=== PATIENT | male | born 1990 | race Caucasian/White ===

== ENCOUNTER 2025-05-10 23:20 | Emergency (ER) | payer MEDICAID, SELFPAY ==
[2025-05-10 23:22] VITALS: BMI 26.4
[2025-05-10 23:26] VITALS: BP 158/100; PULSE 91; RESP 17; TEMP 36.8; O2SAT 97
--- NOTE | 2025-05-10 23:35 | PD.EDSKIN ---
ED Skin Abcess FB-RME/HPI General Chief complaint: Ankle/Foot Injury Stated complaint: LEFT FOOT SWELLING Time Seen by Provider: 05/10/25 23:29 Arrival date/time: 05/10/25 23:20 This is a case of 34-year-old male who came in in the emergency room due to a small lump on the left dorsal foot for 5 days due to worsening of the symptoms now with redness and swelling this patient decided to sought consult here in the emergency room patient tetanus shot is up Limitations: no limitations Related Data Previous Rx's ?Medication ?Instructions ?Recorded acetaminophen 500 mg tablet 1,000 mg (2 x 500 mg) PO QID PRN 01/20/21 (Tylenol Extra Strength) fever or pain #30 tabs albuterol sulfate 90 mcg/actuation 2 puff inhalation QID #18 grams 01/20/21 aerosol inhaler azithromycin 250 mg tablet See Rx Instructions PO .COMPLEX #6 01/20/21 tabs ibuprofen 600 mg tablet 600 mg PO QID PRN fever or pain 02/17/21 #30 tabs cephalexin 500 mg capsule 500 mg PO TID 10 days #30 caps 05/10/25 sulfamethoxazole 800 1 tab PO BID 10 days #20 tabs 05/10/25 mg-trimethoprim 160 mg tablet (Bactrim DS) Allergies Allergy/AdvReac Type Severity Reaction Status Date / Time No Known Allergies Allergy Verified 05/10/25 23:21 Review of Systems Review of Systems Systems Reviewed: All systems reviewed, normal except as documented Constitutional Constitutional: Reports system reviewed and no additional complaints, except as documented and Reports as per HPI Cardiovascular Cardiovascular: Reports system reviewed and no additional complaints, except as documented and Reports as per HPI Respiratory Respiratory: Reports system reviewed and no additional complaints, except as documented and Reports as per HPI Gastrointestinal Gastrointestinal: Reports system reviewed and no additional complaints, except as documented and Reports as per HPI Musculoskeletal Musculoskeletal: Reports system reviewed and no additional complaints, except as documented and Reports as per HPI Integumentary/Breasts Skin/Breast: Reports system reviewed and no additional complaints, except as documented, Reports as per HPI and Reports other (Abscess) Neurologic Neurologic: Reports system reviewed and no additional complaints, except as documented and Reports as per HPI Past Medical History Past Medical History CARDIAC: Negative Congestive Heart Failure RESPIRATORY: Negative Chronic Obstructive Pulmonary Disease (COPD) GENITOURINARY: Negative Renal Disease ENDOCRINE: Negative Diabetes Mellitus Type 1 or Diabetes Mellitus Type 2 Social History SMOKING STATUS: Never smoker ED Exam General Limitations: Present no limitations General appearance: Present alert, in no apparent distress and other (Patient is awake alert oriented not in distress nontoxic looking well-hydrated well-nourished) Head Head exam: Present atraumatic, normocephalic and normal inspection Eye Eye exam: Present normal appearance, PERRL and EOMI ENT ENT exam: Present normal exam, normal oropharynx and mucous membranes moist Neck Neck exam: Present normal inspection, full ROM and trachea midline; Absent tenderness Chest Chest inspection: Present normal inspection and symmetric chest wall rise Respiratory Respiratory exam: Present normal lung sounds bilaterally; Absent respiratory distress, wheezes, stridor, accessory muscle use or prolonged expiratory phase Cardiovascular Cardiovascular exam: Present regular rate, normal rhythm and normal heart sounds; Absent bradycardia, tachycardia, irregular rhythm, systolic murmur or diastolic murmur Abdominal Exam Abdominal exam: Present soft and normal bowel sounds Extremities Exam Extremities exam: Present normal inspection and full ROM Expanded Lower Extremity Exam Foot/toe exam: Present full ROM, tenderness, swelling, erythema and other (ROM intact neurovascular intact noted 2 cm abscess on the dorsal left foot); Absent abrasion, laceration, ecchymosis, deformity, crepitus, dislocation, amputation, puncture wound, foreign body, calcaneal tenderness, tenderness at base of 5th metatarsal, nail avulsion or subungual hematoma Back Exam Back exam: Present normal inspection and full ROM Neurological Exam Neurological exam: Present alert, oriented X3, CN II-XII intact, normal gait and reflexes normal; Absent motor sensory deficit Psychiatric Psychiatric exam: Present normal affect and normal mood Skin Skin exam: Present warm, dry, intact, normal color and other (Noted 2 cm lump on the dorsal left press tender smoke signal to touch with mild swelling and redness no fluctuance not indurated suggestive of abscess but no cellulitis) Course Quality Measures none Orders Category Date Time Status Trimethoprim/Sulfa 160/800 Ds [Bactrim Ds] Med 05/10/25 23:32 Once 1 tab PO X1 ONE cephALEXin [Keflex] Med 05/10/25 23:32 Once 500 mg PO X1 ONE Vital Signs Vital signs: Vital Signs Temperature 98.2 F 05/10/25 23:26 Pulse Rate 91 05/10/25 23:26 Respiratory Rate 17 05/10/25 23:26 Blood Pressure 158/100 H 05/10/25 23:26 Pulse Oximetry (%) 97 05/10/25 23:26 Oxygen Delivery Method Room Air 05/10/25 23:26 Patient is afebrile not tachycardic not tachypneic not hypoxic BP stable oxygen saturation is 97% in room air not hypoxic Skin / Abscess / Foreign Body MDM Narrative MDM Narrative:: This is a case of 34-year-old male who came in in the emergency room due to a small lump on the left dorsal foot for 5 days due to worsening of the symptoms now with redness and swelling this patient decided to sought consult here in the emergency room patient tetanus shot is up physical examination patient is awake alert oriented not in distress not toxic looking Noted 2 cm lump on the dorsal left press tender smoke signal to touch with mild swelling and redness no fluctuance not indurated suggestive of abscess but no cellulitis ROM intact neurovascular intact based on my physical examination and history patient symptoms suggestive of abscess on the left dorsal foot there is no indication to perform incision and drainage of the abscess still hard antibiotic treatment only at this time needed patient was given cephalexin and Bactrim patient was also prescribed with the same medication patient was advised to return in 2 days for evaluation and possible incision and drainage for any worsening symptoms or any emergent concern return precaution in the emergency room was advised patient will also follow-up with PCP for evaluation Patient was discharged with comfortable condition walking with stable gait. Patient verbalized no further complains explained diagnosis and answered patient question. Patient is comfortable with the proposed management plan including the need to follow up with his/her primary care physician and any specialist if applicable Discussed patient for any urgent condition or worsening sx, He/She needed to go to emergency room immediately or call 911. Patient acknowledge the responsibility to follow up as instructed and to monitor her/his symptoms. For any persistence of the symptoms for more than 3-5 days return precaution advised. Discussed the result of the test and was given printed discharge instruction Patient data External records reviewed:: [facility] previous records Clinical information provided by:: none Social determinants that could affect healthcare access:: none Patient has the following chronic illnesses:: None How is presenting disease/condition affected by chronic disease/condition?: no chronic disease Evaluation data The following diagnostics were reviewed and interpreted by me:: other (specify) (None) Lab and/or radiology exams considered but not ordered:: None Interpretation Summary: none Medications / Prescriptions Medications or Prescriptions considered but not ordered:: Given Medication administrations:: Medication Administration History Cephalexin HCl (Cephalexin 250 Mg Capsule) 500 mg PO X1 ONE Stop: 05/10/25 23:33 Trimethoprim/Sulfamethoxazole (Trimethoprim/Sulfa 160/800 Ds Tablet) 1 tab PO X1 ONE Stop: 05/10/25 23:33 Given Consultations Consultation(s) initiated? (list below): No Diagnosis Skin/Abscess Differential Diagnosis: abscess of skin or subcutaneous tissue, urticaria, cellulitis, insect bites and contact dermatitis Most likely diagnosis given after review of the tests above:: Abscess Admission Indicated Admission indicated?: not indicated Explain why admission is indicated or not indicated:: Not indicated Admission Request Was there a request for admission?: No Admission Attestation Admission request attestation: Not indicated Disposition Plan Disposition Plan: Discharge Discharge Attestation Discharge Attestation: The patient and all family members were given an opportunity to ask questions and understood the discharge instructions. Discharge instructions specifically effects, indications for sooner follow up or return to the emergency department, and the expected course of current diagnosis. Patient condition: Stable Discharge Plan Plan Patient Disposition: HOME (Self Care) Patient condition on transfer: Stable Prescriptions/Referrals Prescriptions/Med Rec: New cephalexin 500 mg capsule 500 mg PO TID 10 Days Qty: 30 0RF sulfamethoxazole-trimethoprim [Bactrim DS] 800-160 mg tablet 1 tab PO BID 10 Days Qty: 20 0RF No Action azithromycin 250 mg tablet See Rx Instructions .ROUTE .COMPLEX Qty: 6 0RF Rx Instructions: take 500 mg today (day 1), then 250 mg for 4 days (days 2-5) albuterol sulfate 90 mcg/actuation HFA aerosol inhaler 2 puff inhalation QID Qty: 18 0RF acetaminophen [Tylenol Extra Strength] 500 mg tablet 1,000 mg PO QID PRN (Reason: fever or pain) Qty: 30 0RF ibuprofen 600 mg tablet 600 mg PO QID PRN (Reason: fever or pain) Qty: 30 0RF Problem List Clinical Impression: Cutaneous abscess of left foot Patient/Caregiver Discharge Instructions Education Materials: ED Abscess Antibiotic ... Additional Instructions: Follow-up with your primary care physician in 2 days for reevaluation return to the emergency room in 2 days for reevaluation of the abscess and possible incision and drainage worsening symptoms or any emergent concern call 911 or go to the nearest emergency room finish the course of antibiotic keep the area clean and dry Print Language: German Stand Alone Forms: Annette Award Info., Patient Portal Info Letter PA/EPOXY FABRICATION SUPERVISOR Supervising Physician PA/EPOXY FABRICATION SUPERVISOR Supervising Physician: dr prabhakar
[2025-05-10] MEDS: TRIMETHOPRIM/SULFA 160/800 DS TABLET 1 TAB PO (23:41)
== END 2025-05-10 23:46 | disposition home or self-care (01) ==
PROVIDERS: Emergency Provider Emergency Medicine
DX: L02.612 Cutaneous abscess of left foot (principal)
CPT/HCPCS: 99283; A9270

== ENCOUNTER 2025-07-26 00:23 | Emergency (ER) | payer SELFPAY ==
[2025-07-26 00:32] VITALS: BMI 27.2
[2025-07-26 00:37] VITALS: BP 176/131; PULSE 103; RESP 14; TEMP 37; O2SAT 99
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
[2025-07-26] MEDS: SILVER SULFADIAZINE CR 1% 25 GM TUBE TOP (01:28)
[2025-07-26] MEDS: IBUPROFEN TAB 600 MG TABLET PO (01:28)
[2025-07-26 01:48] VITALS: BP 145/85; PULSE 85; RESP 14; TEMP 37; O2SAT 99
== END 2025-07-27 01:49 ==
LOC: SERX 02:26
PROVIDERS: Emergency Provider Emergency Medicine
DX: T23.261A Burn of second degree of back of right hand, initial encounter (principal); T59.811A Toxic effect of smoke, accidental (unintentional), initial encounter; X08.8XXA Exposure to other specified smoke, fire and flames, initial encounter
CPT/HCPCS: 99283; A9270